=== PATIENT | female | born 1985 | race Caucasian/White ===

== ENCOUNTER 2018-09-16 18:37 | Emergency (ER) | payer MEDICAID ==
[~2018-09-16] VITALS: Ht 157.5 cm; Wt 86.4 kg
[2018-09-16 19:10] VITALS: Ht 157.5 cm; Wt 86.4 kg
[2018-09-16] MEDS ORDERED: NEURONTIN 300300 MG PO (19:12)
[2018-09-16] MEDS ORDERED: PROVERA10 MG PO (19:13)
[2018-09-16] MEDS ORDERED: LIORESAL 10 MG10 MG PO (19:13)
[2018-09-16] MEDS ORDERED: FLAGYL500 MG PO (19:14)
[2018-09-16] MEDS ORDERED: TORADOL10 MG PO (19:15)
[2018-09-16 19:48] LABS: APPEARANCE TURBID (CLEAR); BILIRUBIN NEGATIVE (NEGATIVE); COLOR RED (YELLOW); GLUCOSE NEGATIVE (NEGATIVE); KETONE NEGATIVE (NEGATIVE); NITRITE NEGATIVE (NEGATIVE); PROTEIN 1+ mg/dL (NEGATIVE); UROBILINOGEN NORMAL (NORMAL)
[2018-09-16 19:50] LABS: BACTERIA MODERATE /hpf (NONE SEEN); EPITHELIAL CELLS 0-5 /hpf (0-5); RED CELLS - URINE >50 /hpf (0-5); WHITE CELLS - URINE 0-5 /hpf (0-5)
[2018-09-16 19:59] LABS: BASOPHILS 0.7 % (0-2); EOSINOPHILS 6.4 % (0-7); HEMATOCRIT 37.2 % (36.0-48.0); IMMATURE GRANULOCYTES 0.3 % (0-5); MCH 31.5 pg (26.0-34.0); MCHC 34.9 g/dL (31.0-37.0); MCV 90.1 fL (80.0-100.0); MEAN PLATELET VOLUME 10.1 fL (7.4-10.4); MONOCYTES 6.7 % (2-11); NEUTROPHILS 55.9 % (40-80); PLATELET COUNT 252 10x3/uL (130-400); RBC 4.13 10x6/uL (4.00-5.40); WBC 7.5 10x3/uL (4.8-10.8)
[2018-09-16 20:08] LABS: HCG SERUM NEGATIVE (NEGATIVE)
[2018-09-16 20:17] LABS: ALBUMIN 3.6 g/dL (3.4-5.0); ALKALINE PHOSPHATASE 73 U/L (46-116); ALT (SGPT) 31 U/L (10-68); BILIRUBIN - TOTAL 0.22 mg/dL (0.2-1.3); CALC OSMOLALITY 274 mosm/kg (275-300); CALCIUM 9.2 mg/dL (8.5-10.1); CARBON DIOXIDE 29.5 mmol/L (21.0-32.0); CHLORIDE - SERUM 105 mmol/L (98-107); CREATININE - SERUM 0.8 mg/dL (0.6-1.3); GLUCOSE 86 mg/dL (74-106); POTASSIUM - SERUM 3.8 mmol/L (3.5-5.1); PROTEIN - SERUM 6.9 g/dL (6.4-8.2); SODIUM 139 mmol/L (136-145); UREA NITROGEN 8 mg/dL (7-18); eGFR NON AFRICAN AMERICAN 87 mL/min (90-120)
[2018-09-16] MEDS ORDERED: ROBAXIN500 MG PO (21:12)
[2018-09-16 21:39] VITALS: BP 109/77
== END 2018-09-16 21:39 | disposition home or self-care (01) ==
LOC: D.ER 18:37
PROVIDERS: Emergency Medicine
DX: N76.0 Acute vaginitis (principal); B96.89 Other specified bacterial agents as the cause of diseases classified elsewhere; N92.6 Irregular menstruation, unspecified; M62.838 Other muscle spasm